=== PATIENT | male | born 1990 | race African-American/Black ===

== ENCOUNTER 2021-04-03 11:33 | Emergency (ER) | payer SELFPAY ==
[2021-04-03 12:45] LABS: Actual Bicarbonate (HCO3v) 17 mEq/L (22-28); Calcium, Ionized (venous) 0.98 mmol/L (1.16-1.32); Chloride (VBG) 101 mmol/L (98-106); Potassium (VBG) 4.28 mmol/L (3.70-5.30); Puncture Site Other Site; RapidComm Collect By CBN; Sodium 133.7 mmol/L (133-146); pH (venous) 7.35 (7.32-7.43)
[2021-04-03 13:23] LABS: #Monocytes 0.3 10x3/uL (0.0-1.1); #Neutrophils 6.9 10x3/uL (1.5-8.4); %Basophils 0.5 % (0.0-2.0); %Eosinophils 0.2 % (0.0-6.0); %Lymphocytes 12.4 % (18.0-47.0); %Monocytes 3.9 % (0.0-10.0); %Neutrophils 82.8 % (40.0-75.0); Hemoglobin 13.9 g/dL (13.5-17.5); Mean Corpuscular HGB CONC 33.8 g/dL (32.0-36.0); Mean Corpuscular Hemoglobin 29.2 pg (27.0-33.0); Mean Corpuscular Volume 86.3 fl (81.2-95.1); Mean Platelet Volume 10.9 fl (7.4-10.4); RBC Distribution Width 11.7 % (11.5-14.5); Red Blood Cell (RBC) Count 4.76 10x6/uL (4.32-5.72); White Blood Cell (WBC) Count 8.3 10x3/uL (3.5-10.5)
[2021-04-03 13:24] LABS: Platelet Count 185 10x3/uL (150-450)
[2021-04-03 13:55] LABS: ALT (SGPT) 72 U/L (8-55); AST (SGOT) 56 U/L (5-34); Albumin 3.7 g/dL (3.5-5.0); Alkaline Phosphatase 495 U/L (40-110); Anion Gap 18 mmol/L (10-20); BUN (Urea Nitrogen) 13 mg/dL (8.9-20.6); Bilirubin, Total 0.8 mg/dL (0.2-1.2); Calc. Creatinine Clearance 0 mL/min (70-130); Calcium 8.7 mg/dL (7.8-10.44); Carbon Dioxide 19 mmol/L (22-29); Chloride 101 mmol/L (98-107); Glucose 492 mg/dL (70-105); Potassium 5.2 mmol/L (3.5-5.1); Protein, Total 6.7 g/dL (6.0-8.3); Sodium 133 mmol/L (136-145)
[2021-04-03] MEDS ORDERED: Insulin Regular 300 UNITS/3 ML VIAL ONE (14:21)
[2021-04-03] MEDS ORDERED: levETIRAcetam 500 MG TAB ONE (14:34)
== END 2021-04-03 14:58 ==
LOC: CSHERS 11:33
DX: S00.83XA Contusion of other part of head, initial encounter (principal); E11.65 Type 2 diabetes mellitus with hyperglycemia; Y04.0XXA Assault by unarmed brawl or fight, initial encounter
CPT/HCPCS: 36415; 36416; 70450; 71045; 72100; 80053; 82010; 82805; 85025; J1815